=== PATIENT | male | born 1960 | race Caucasian/White ===

== ENCOUNTER 2021-01-13 08:28 | Observation (INO) | payer SELFPAY, OTHER ==
[2021-01-13] VITALS (10 sets, daily range): BP systolic 116–160; BP diastolic 68–92; PULSE 66–93; RESP 15–18; TEMP 36–36.7; O2SAT 95–98; BMI 28.0; BMI 27.6
--- NOTE | 2021-01-13 08:49 | EKG12_ITS ---
Test Reason : ADMISSION Blood Pressure : / mmHG Vent. Rate : 062 BPM Atrial Rate : 062 BPM P-R Int : 196 ms QRS Dur : 104 ms QT Int : 408 ms P-R-T Axes : 038 019 054 degrees QTc Int : 414 ms Normal sinus rhythm Normal ECG When compared with ECG of 30-MAR-2016 12:50, No significant change was found Confirmed by SANTANA VAZQUEZ, EUGENE ([id number]), clinical editor ABY MATOS ([id number]) on 01/14/2021 10:56:48 AM Referred By: RIVER Confirmed By:EUGENE DILLON MD
--- NOTE | 2021-01-13 08:54 | ED.DCSUM_ITS ---
- ER Visit Summary Date of Service: 01/13/21 Chief Complaint: Chest pain History of Present Illness: The patient is a 60 M presenting with chest pain. Patient states he has intermittent left-sided chest pain. He states this is worsened with exertion. He has associated shortness of breath and dizziness. The pain radiates to his left arm. He has no family history of early heart disease. He is not a smoker. Denies exposure to Covid. Physical Examination: Vitals are stable. Patient is afebrile. Alert no acute distress. HEENT exam is unremarkable. Neck is supple. Lungs are clear and equal bilaterally. Heart is regular rate and rhythm. Abdomen is soft nontender nondistended. Extremities are unremarkable. Skin is warm and dry. No focal neurologic deficit. Remainder of exam is unremarkable. Emergency Department Course and Treatment: EKG is sinus rhythm rate of 79 with no acute ischemic changes. Patient was given aspirin on arrival. CBC, chemistries unremarkable. Troponin is negative. Chest x-ray read by myself and radiology shows no acute process. Patient is pain-free on reevaluation. Will discuss with hospitalist for observation. Disposition: Observation Impression: Chest pain This note was generated with [employer] dictation software. It may contain incorrect words, spelling, and punctuation that were not noted in review of the chart prior to signing ED Disposition - Plan for ED Patient: Referrals: Care Physician,No Primary [Primary Care Provider] -
[2021-01-13] MEDS: Aspirin 81 MG TAB.CHEW 324 MG PO (08:55)
[2021-01-13 08:59] LABS: Absolute Lymphocyte Count 2.42 X10^3/uL (0.83-4.51); Absolute Neutrophil Count 4.4 X10^3/uL (2.0-7.7); Basophil# 0.12 X10^3/uL; Basophil% 1.5 % (0-1); Eosinophil# 0.43 X10^3/uL; Eosinophils% 5.2 % (0-5); Hematocrit 43.2 % (40-54); Hemoglobin 14.7 g/dL (13.0-16.5); Lymphocyte # 2.42 X10^3/ul (4.0); Lymphocyte % 29.4 % (19-41); Mean Corpuscular Hgb 30.5 pg (27.0-32.0); Mean Corpuscular Volume 89.6 fL (80-94); Mean Platelet Vol. 9.9 fl (6.2-12.0); Monocyte% 10.9 % (0-10); NRBC Flagged by Analyzer 0 % (0-5); Neutrophil # 4.35 X10^3/uL (2.7-7.7); Neutrophil % 52.8 % (47-70); Platelet Count 240 K/mm3 (150-450); RBC Distribution Width CV 12.3 % (11.6-14.6); RBC Distribution Width SD 40.5 fl (35.1-43.9); Red Blood Count 4.82 M/mm3 (4.6-6.2); White Blood Count 8.2 K/mm3 (4.4-11.0)
--- NOTE | 2021-01-13 09:00 | RAD_ITS ---
STUDY: X-RAY CHEST REASON FOR EXAM: Male, 60 years old. CHEST PAIN RADIATES INTO ARM TECHNIQUE: Single AP portable view of the chest. COMPARISON: Comparison is made with prior study dated 03/30/2016. FINDINGS: EKG electrodes are seen. The lungs are clear and expanded. Scattered calcified granulomas. There is no demonstrated pleural abnormality. Normal size heart. Normal mediastinum and oleksandr. Normal visualized pulmonary arteries. Normal visualized aortic arch and descending thoracic aorta. There are diffuse degenerative changes of the visualized thoracic spine. Normal visualized ribs, clavicles, and shoulders. There is no demonstrated abnormality of the visualized soft tissue structures of the upper abdomen. RAD/Chest 1 View (Portable) IMPRESSION: No acute abnormality is seen. Electronically Signed: Norberto Reardon MD at 9:15 EST , Service support ,
[2021-01-13 09:12] LABS: Anion Gap 6 (5-15); BUN 19 mg/dL (7-18); BUN/Creat Ratio 16.8 RATIO (10-20); Calcium,Total 9.4 mg/dL (8.5-10.1); Chloride 104 mmol/L (98-107); Creatinine, Serum 1.13 mg/dL (0.70-1.30); EST Glomerular Filtration Rate 70 mL/min (>60); Est Glom Filt Rate - Afr Amer 85 mL/min (>60); Estimated Creatinine Clearance 87.63 ml/min; Glucose 100 mg/dL (74-106); Potassium 3.8 mmol/L (3.5-5.1); Sodium Level 139 mmol/L (136-145)
--- NOTE | 2021-01-13 10:50 | PCM.HP.STD ---
Problem List (1) Chest pain Status: Acute History of Present Illness Date of Admission: 01/13/21 Chief Complaint: Chest pain. The patient is a 60 year old M with no significant past medical history presented to the emergency room because of chest pain. Symptoms started 3 days ago with left-sided chest pain, intermittent, mainly exertional, described as burning sensation, 5-6 out of 10 in severity, radiates to his left arm, associated with mild shortness of breath and occasional dizziness and without aggravating or relieving factors. He did mention that he has been having those burning sensation on the left chest over the last couple of weeks but this past Wednesday, it was more intense. Currently, he has no chest pain. In the emergency department, his blood pressure was slightly elevated, other vital signs were stable. Routine blood work was unremarkable. Chest x-ray showed no acute findings. EKG revealed normal sinus rhythm, normal VA interval, normal QRS, no acute hemic changes. Troponin was negative. He is being admitted for chest pain for evaluation. Past Medical History Allergies No Known Allergies Allergy (Verified 01/13/21 08:31) Home Medications: Ambulatory Orders Medication Instructions Recorded [place] Oil 01/13/21 Multivitamin with Minerals 1 ea PO DAILY 01/13/21 [Multiple Vitamin] Surgical History: appendectomy Psychiatric History: No pertinent psych hx Lives: Spouse/ Significant Other Smoking Status: Never smoker Alcohol: None Drugs: None - *Family History Maternal History Items: No pertinent history, - - No family history of CAD, hypertension or diabetes. Paternal History Items: No pertinent history Review of Systems Constitutional: Denies: Anorexia, Chills, Fever, Weakness Eyes: Denies: Blurred vision, Double vision, Drainage, Redness HEENT: Denies: Difficulty Hearing, Ear Pain, Eye Pain, Nasal Congestion, Sore Throat Cardiovascular: Reports: Chest Pain, Light Headedness, Palpitations. Denies: Edema, Heaviness, Syncope Respiratory: Reports: Shortness of Breath. Denies: Cough, Hemoptysis, Pleuritic Pain, Sputum production, Wheezing Gastrointestinal: Denies: Abdominal Pain, Constipation, Diarrhea, Nausea, Vomiting Genitourinary: Denies: Dysuria, Frequency, Hematuria Musculoskeletal: Denies: Arm Pain, Back Pain, Foot Pain Skin: Denies: Dryness, Rash Neurological: Denies: Balance problems, Double vision, Change in Speech, Slurred speech, Confusion, Headaches, Incoordination Psychiatric: Denies: Anxiety, Depression Endocrine: Denies: Change in Body Habitus, Polydipsia, Polyuria VTE Information - Inpt Only VTE Present on Admission: No VTE Mechan Device Prophylaxis: None VTE Pharm Prophylaxis ordered?: Yes - Physical Exam Vitals/I&O's: Vital Signs Temp Pulse Resp BP Pulse Ox 97.7 F L 66 16 126/78 H 97 01/13/21 10:45 01/13/21 10:45 01/13/21 10:45 01/13/21 10:45 01/13/21 10:45 Oxygen Delivery Method Room Air Weight: 238 lb 9.6 oz Body Mass Index (BMI) 27.6 General: Alert, Oriented x3, Cooperative, No apparent distress HEENT: Atraumatic, PERRLA, EOMI, Normocephalic Oral: Moist Mucosa, No Gingival or Mucosal Lesions/ Ulcerations Neck: Supple, No JVD, Negative Carotid Bruits, Trachea Midline, Thyroid Normal Size and Texture Lungs: Clear to auscultation, Normal air movement, No rhonchi, No wheeze, No rales Cardiovascular: Regular rate, Regular Rhythm, Normal S1, Normal S2, PMI Normal Abdomen: Bowel Sounds Present, Soft, Non Tender, Non-Distended, No Hepato-splenomegaly Extremities: No clubbing, No cyanosis, No edema Skin: No rashes, No breakdown Lymphatic: No Cervical, Supraclavicular, or Inguinal Adenopathy Neurological: Cranial nerves II-XII grossly intact, Motor Exam 5/5 strength throughout Psych/Mental Status: Normal Affect, Appropriate, Alert and oriented to time, place, person, mood and affect Laboratory Results 01/13/21 08:40: WBC 8.2, RBC 4.82, Hgb 14.7, Hct 43.2, MCV 89.6, MCH 30.5, MCHC 34.0, RDW Std Deviation 40.5, RDW Coeff of Vu 12.3, Plt Count 240, MPV 9.9, Immature Gran % (Auto) 0.200, Neut % (Auto) 52.8, Lymph % (Auto) 29.4, [place] % (Auto) 10.9 H, Eos % (Auto) 5.2 H, Baso % (Auto) 1.5 H, Absolute Neuts (auto) 4.4, Absolute Lymphs (auto) 2.42, Nucleated RBC % 0 01/13/21 08:40: Sodium 139, Potassium 3.8, Chloride 104, Carbon Dioxide 29.0, Anion Gap 6, BUN 19 H, Creatinine 1.13, Estim Creat Clear Calc 87.63, Est GFR (MDRD) Af Amer 85, Est GFR (MDRD) Non-Af 70, BUN/Creatinine Ratio 16.8, Glucose 100, Calcium 9.4, Troponin I < 0.015 Clinical Impression(s) from Imaging Studies Chest X-Ray 01/13/21 09:00 IMPRESSION: No acute abnormality is seen. Electronically Signed: Norberto Reardon MD at 9:15 EST , Service support , Assessment/Plan All Active Problems Chest pain (Acute) This is a 60 years old male patient presented to the emergency room because of chest pain and he is being admitted for evaluation. #1 chest pain: Risk factors are only age. Patient does not smoke. No family history of premature CAD. No personal history or family history of diabetes or hypertension. EKG revealed no acute hemic changes. Troponin was negative. Chest x-ray showed no acute findings. His pain could be due to CAD, cardiac arrhythmia. Plan: Admit to PCU for observation, cardiac monitoring, serial cardiac enzymes, repeat EKG tomorrow morning, start baby aspirin, sublingual nitroglycerin as needed, Tylenol as needed, nuclear stress test tomorrow morning if cardiac enzymes are negative, lipid profile, check TSH. #2 DVT prophylaxis: Subcu Lovenox. This note was generated with [employer] software. It may contain incorrect words, spelling, and punctuation that were not noted in checking the note before signing. OBSV E&M: 96587 Initial observation care L3
--- NOTE | 2021-01-13 11:26 | EKG12_ITS ---
Test Reason : AM EKG Blood Pressure : / mmHG Vent. Rate : 075 BPM Atrial Rate : 075 BPM P-R Int : 186 ms QRS Dur : 100 ms QT Int : 390 ms P-R-T Axes : 051 023 040 degrees QTc Int : 435 ms Normal sinus rhythm Normal ECG When compared with ECG of 13-JAN-2021 10:54, MANUAL COMPARISON REQUIRED, DATA IS UNCONFIRMED Confirmed by SANTANA VAZQUEZ, EUGENE ([id number]), acquisition editor JUANCARLOS PEACOCK ([id number]) on 01/15/2021 1:31:32 PM Referred By: KALI Confirmed By:EUGENE DILLON MD
[2021-01-13 11:36] LABS: Thyroid Stim Hormone (TSH) 8.89 uIU/mL (0.358-3.74)
[2021-01-13] MEDS: Enoxaparin 40 MG/0.4 ML Syringe SC (12:27)
[2021-01-13] MEDS: Zolpidem Tartrate 5 MG Tablet PO (21:54)
--- NOTE | 2021-01-13 23:38 | PCS.PANDOC ---
PANDEMIC DOCUMENTATION INITIATED: Date: 01/13/21 Time: 10:30
[2021-01-14] MEDS: Acetaminophen 325 MG Tablet 650 MG PO (00:05)
[2021-01-14 03:00] VITALS: PULSE 77
[2021-01-14 03:45] VITALS: BP 113/69; PULSE 72; RESP 16; TEMP 36.6; O2SAT 96
--- NOTE | 2021-01-14 05:55 | EKG12_ITS ---
Test Reason : CP Blood Pressure : / mmHG Vent. Rate : 079 BPM Atrial Rate : 079 BPM P-R Int : 184 ms QRS Dur : 102 ms QT Int : 380 ms P-R-T Axes : 047 020 051 degrees QTc Int : 435 ms Normal sinus rhythm Normal ECG Confirmed by BOSSMAN VAZQUEZ, JOHN ([id number]), editor managing newspaper MILLER CURIEL ([id number]) on 01/17/2021 11:41:16 AM Referred By: SANJUANA Confirmed By:JOHN KEITA MD
[2021-01-14] MEDS: Aspirin E.C. 81 MG Tablet PO (06:30)
[2021-01-14 06:31] VITALS: BP 100/68; PULSE 82; RESP 16; TEMP 36.5; O2SAT 95
[2021-01-14 07:00] VITALS: PULSE 88
[2021-01-14 07:36] LABS: Cholesterol 198 mg/dL (200); High Density Lipoprotein 37 mg/dL; Triglycerides 125 mg/dL; Very Low Density Lipoprotein 25 mg/dL (5-40)
[2021-01-14 07:56] LABS: Free T3 2.6 pg/mL (2.18-3.98); T4 Free Direct 1.08 ng/dL (0.76-1.46); T4 Total, Thyroxin 9.4 ug/dL (4.5-12.1)
[2021-01-14 08:11] VITALS: BP 104/70; PULSE 79; RESP 18; TEMP 36.9; O2SAT 98
--- NOTE | 2021-01-14 12:38 | STRESSREP ---
Stress Test Report Date: 01-14-2021 Procedure: Exercise tolerance test/imaging study Indications: Chest pain: Shortness of breath/dyspnea Consent: Per the patient Procedure: The patient exercised on a Nader protocol for 7 minutes and 30 seconds completing Stage II and 1 minute and 30 seconds of Stage III achieving a peak heart rate of 169 bpm (106% predicted maximal heart rate) with a peak blood pressure 140/72 mmHg and a peak MET capacity of 9 METs. The baseline ECG demonstrated normal sinus rhythm. The peak exercise ECG demonstrated no obvious ECG changes. There were no cardiac dysrhythmias pretest, during exercise, or recovery. The functional capacity was considered good. There was chest discomfort/burning at peak exercise with subsequent spontaneous resolution in recovery. The examination was discontinued secondary to discomfort/dyspnea. Impression: 1. Technically adequate (percent predicted maximal heart rate greater than 85%) exercise tolerance test 2. Peak exercise ECG with no obvious ECG changes 3. There were no cardiac dysrhythmias pretest, during exercise, or recovery 4. Nuclear images pending Myocardial perfusion imaging study: Technique: The patient was injected with 14.6 mCi of technetium 99m Cardiolite and subsequently rest SPECT Cardiolite nuclear imaging was obtained in the horizontal long, vertical long, and short axis views. The patient exercised on a Nader protocol for 7 minutes and 30 seconds completing Stage II and 1 minute and 30 seconds of Stage III achieving a peak heart rate of 169 bpm (106% predicted maximal heart rate) with a peak blood pressure 140/72 mmHg and a peak MET capacity of 9 METs. The patient was injected with 44.4 mCi of technetium 99m Cardiolite and subsequently stress SPECT Cardiolite nuclear imaging was obtained in the horizontal long, vertical long, and short axis views. A gated Cardiolite study at peak stress was obtained. Interpretation: Rest and stress SPECT Cardiolite nuclear imaging status post realignment, normalization, and attenuation correction, demonstrates the appearance of extracardiac/gastrointestinal tracer uptake near the inferior segments and otherwise appear to demonstrate relative uniform tracer uptake and myocardial perfusion appearing within normal limits. There is end systolic thickening and brightening. The gated Cardiolite study demonstrates myocardial thickening and inward wall motion. The reported LVEF is 41%. Impression: 1. Rest and stress SPECT Cardiolite nuclear imaging demonstrate myocardial perfusion changes appearing compatible with the effects of extracardiac/gastrointestinal tracer uptake near the inferior segments and otherwise appear to demonstrate relative uniform tracer uptake and myocardial perfusion appearing within normal limits. 2. The gated Cardiolite study reports an LVEF of 41%. This note was generated with [employer] software. It may contain incorrect words, spelling, and punctuation that were not noted in checking the note before signing.
--- NOTE | 2021-01-14 12:42 | DCINST_ITS ---
- Discharge Diagnoses Current Active Problems: Current Active and Chronic Problems Chest pain (Acute) You will use the following diet at home:: Regular Your food should be the consistency of: Regular Discharge Activity: Return to Normal Activity Weight Bearing Status: Full weight bearing Call your doctor if you observe: Fever of 101 or Higher, Shortness of breath, Dizziness, Fainting spells, Chest pain, Increased palpitations (irregular heartbeat), Uncontrolled pain Allergies/Adverse Reactions: Allergies No Known Allergies Allergy (Verified 01/13/21 08:31) Medications to take at Discharge [place] Oil 01/13/21 Multivitamin with Minerals [Multiple Vitamin] 1 ea PO DAILY 01/13/21 Primary Care Physician: Care Physician,No Primary [Primary Care Provider] - Please follow up with your Primary Care Physician in: 1-2 weeks. Test Results: Test results from this visit will be discussed in further detail at your follow- up appointment, if applicable.
--- NOTE | 2021-01-14 12:43 | DS.PCM_ITS ---
Discharge Date and Diagnosis - Problem List Patient Problems: Active and Suspected Problems Abnormal echocardiogram (Acute) HLD (hyperlipidemia) (Acute) Chest pain (Acute) Date of Admission: 01/13/21 Date of Discharge: 01/14/21 - Primary Discharge Diagnosis Acute Problems: Active Problems #1 chest pain, ACS ruled out. #2 abnormal echocardiogram, borderline ejection fraction and mild global RV systolic dysfunction. Hospital Course and Treatment Imaging Results: 01/14/21 05:55 Nuclear Stress Test - Treadmil [NM] Routine Impression: 1. Rest and stress SPECT Cardiolite nuclear imaging demonstrate myocardial perfusion changes appearing compatible with the effects of extracardiac/gastrointestinal tracer uptake near the inferior segments and otherwise appear to demonstrate relative uniform tracer uptake and myocardial perfusion appearing within normal limits. 2. The gated Cardiolite study reports an LVEF of 41%. Clinical Impression(s) from Imaging Studies Chest X-Ray 01/13/21 09:00 IMPRESSION: No acute abnormality is seen. Electronically Signed: Norberto Reardon MD at 9:15 EST , Service support , Dr. Caruso, cardiology. Operations: None Procedures: 2-D Echocardiogram, EKG, Stress test Summary of Care Provided: Patient seen and examined on the day of discharge and appeared to be stable to be discharged home. He denied chest pain, no shortness of breath. His vital si gns remained stable. The patient is a 60 year old M admitted for chest pain for evaluation. His initial and repeat EKGs revealed no evidence of acute acute changes. Troponin was negative x3. Routine blood work was unremarkable. Lipid profile revealed cholesterol of 198, LDL cholesterol of 136 and HDL cholesterol of 37. TSH was elevated at 8.89. Patient denied any symptoms of hypothyroidism. He has no thyroid swelling or lump. Free T4, total T4 and free T3 were normal. Patient underwent nuclear stress test that revealed no evidence of stress-induced myocardial ischemia but ejection fraction was 41%. 2D echocardiogram done and revealed ejection fraction of 45%, mild global LV systolic dysfunction, mild global RV systolic dysfunction as well. There was no evidence of acute CHF. Patient was started on aspirin, Coreg and statins. Cardiology consulted and recommended that patient should go for cardiac catheterization which can be done as outpatient. After discussion with the patient, we decided to go with medical treatment for now and patient will come back in couple of weeks for cardiac catheterization. Patient discharged home in a stable condition, discharged on aspirin, Lipitor and Coreg twice daily, plan to follow-up with cardiology in 2 to 3 weeks for cardiac catheterization as outpatient, recommended follow-up with PCP in 1 to 2 weeks. Patient Problems: Active and Suspected Problems Abnormal echocardiogram (Acute) HLD (hyperlipidemia) (Acute) Chest pain (Acute) - Physical Exam Vitals/I&O's: Vital Signs Temp Pulse Resp BP Pulse Ox 98.5 F 79 18 104/70 98 01/14/21 08:11 01/14/21 08:11 01/14/21 08:11 01/14/21 08:11 01/14/21 08:11 Oxygen Delivery Method Room Air Weight: 238 lb 9.6 oz Body Mass Index (BMI) 27.6 Intake and Output for Last 24 Hours 01/12/21 01/13/21 01/14/21 23:59 23:59 23:59 Intake Total 1030 / 1030 300 / 300 Balance 1030 / 1030 300 / 300 General: Alert, Oriented x3, Cooperative, No apparent distress HEENT: Atraumatic, PERRLA, EOMI, Normocephalic Oral: Moist Mucosa, No Gingival or Mucosal Lesions/ Ulcerations Neck: Supple, No JVD, Negative Carotid Bruits, Trachea Midline, Thyroid Normal Size and Texture Lungs: Clear to auscultation, Normal air movement, No rhonchi, No wheeze, No rales Cardiovascular: Regular rate, Regular Rhythm, Normal S1, Normal S2, PMI Normal Abdomen: Bowel Sounds Present, Soft, Non Tender, Non-Distended, No Hepato- splenomegaly Extremities: No clubbing, No cyanosis, No edema Skin: No rashes, No breakdown Lymphatic: No Cervical, Supraclavicular, or Inguinal Adenopathy Neurological: Cranial nerves II-XII grossly intact, Neuro grossly intact Psych/Mental Status: Normal Affect, Appropriate Laboratory Results 01/13/21 12:14: Troponin I < 0.015 01/13/21 14:25: Troponin I < 0.015 01/14/21 06:30: Triglycerides 125, Cholesterol 198, LDL Cholesterol 136 H, VLDL Cholesterol 25, HDL Cholesterol 37 L 01/14/21 06:30: Free T4 1.08, Thyroxine (T4) 9.4, Free T3 pg/dL 2.6 Current Medications Acetaminophen (Acetaminophen 325 Mg Tablet) 650 mg PO Q6H PRN PRN PRN Reason: Pain Score 1-10/Temp > 100.7 F Last Admin: 01/14/21 00:05 Dose: 650 mg Documented by: Aspirin (Aspirin E.C. 81 Mg Tablet) 81 mg PO DAILY@0800 [facility] Last Admin: 01/14/21 06:30 Dose: 81 mg Documented by: Enoxaparin Sodium (Enoxaparin 40 Mg/0.4 Ml Syringe) 40 mg SC DAILY [facility] Last Admin: 01/14/21 10:55 Dose: Not Given Documented by: Sodium Chloride () 250 mls @ 15 mls/hr IV .[id number] PRN PRN Reason: Saline Flush Sodium Chloride () 250 mls @ 15 mls/hr IV .[id number] PRN PRN Reason: Additional IVPB Infusion Nitroglycerin (Nitroglycerin (Inpatient Use) 0.4 Mg Tab.Subl) 0.4 mg SUBLINGUAL Q5M PRN PRN Reason: CARDIAC/CHEST PAIN Ondansetron HCl (Ondansetron 4 Mg/2 Ml Vial) 4 mg IV Q8H PRN PRN PRN Reason: NAUSEA/VOMITING Sodium Chloride (0.9% Saline Lock 10 Ml Syringe) 10 - 40 ml IV UD PRN PRN Reason: SALINE FLUSH Zolpidem Tartrate (Zolpidem Tartrate 5 Mg Tablet) 5 mg PO QHS PRN PRN PRN Reason: INSOMNIA Last Admin: 01/13/21 21:54 Dose: 5 mg Documented by: Discharge Activity: Return to Normal Activity Weight Bearing Status: Full weight bearing Call your doctor if you observe: Fever of 101 or Higher, Shortness of breath, Dizziness, Fainting spells, Chest pain, Increased palpitations (irregular heartbeat), Uncontrolled pain Home Medications: Medications to take at Discharge Multivitamin with Minerals [Multiple Vitamin] 1 ea PO DAILY 01/13/21 Aspirin E.C. [Ecotrin] 81 mg PO DAILY@0800 #90 tab 01/14/21 Atorvastatin Calcium [Lipitor] 20 mg PO QHS #90 tab 01/14/21 Carvedilol [Coreg (Beta Khushi)] 3.125 mg PO BID #90 tab 01/14/21 Krill/Om-3/Dha/Epa/Phospho/Ast [Krill Oil 1,000 mg Softgel] 2,000 mg PO DAILY 01/14/21 Following Prescriptions Were Given to Patient: Carvedilol [Coreg (Beta Khushi)] 3.125 mg PO BID #90 tab Transmission Status: Received by [facility] Aspirin E.C. [Ecotrin] 81 mg PO DAILY@0800 #90 tab Transmission Status: Received by [facility] Atorvastatin Calcium [Lipitor] 20 mg PO QHS #90 tab Transmission Status: Received by [facility] Primary Care Physician: Care Physician,No Primary [Primary Care Provider] - Please follow up with your Primary Care Physician in: 1-2 weeks. Disposition: Home Minutes spent on discharge:: 28 Patient Condition:: Stable Medical Necessity - Tobacco Use Smoking Status: Never smoker Meaningful Use Info Meaningful Use Diagnoses (Choose all that apply): None applicable OBSV E&M: 64600 Observation care discharge
--- NOTE | 2021-01-14 12:56 | ECHOD_ITS ---
Reason For Study: CHEST PAIN Procedure This was a 2D Doppler, Color Flow transthoracic echocardiogram. Exam performed portable in patient room. Left Ventricle Normal LV size. Apical false tendon noted. Mild global left ventricular systolic dysfunction. The estimated ejection fraction is 45 %. Transmitral doppler flow suggestive of impaired relaxation of left ventricle. Right Ventricle Mildly dilated right ventricle. Mild global right ventricular systolic dysfunction. Atria Normal left atrium. The right atrium is mildly enlarged. No doppler evidence for ASD. Mitral Valve There is no mitral annular calcification. Normal mitral valve. Trivial mitral valve insufficiency. Tricuspid Valve Normal tricuspid valve. Trivial tricuspid valve insufficiency. Right ventricular systolic pressure estimated to be 20 mmHg. Aortic Valve Trisinus/trileaflet aortic valve. Normal aortic valve. Pulmonic Valve The pulmonic valve is not well visualized. Trivial pulmonic valve insufficiency. Great Vessels Normal sized aortic root. Pericardium/Pleural No pericardial effusion. MMode/2D Measurements & Calculations LVIDd: 5.0 cm IVSd: 0.88 cm Ao root diam: 3.3 cm LVIDs: 3.9 cm LVPWd: 0.89 cm FS: 21.5 % LAV(MOD-bp): 58.1 ml LVAd ap4: 38.2 cm2 SV(MOD-sp4): 67.0 ml LAV(MOD-bp) Indexed: 23.9 ml/m2 EDV(MOD-sp4): 146.3 ml LAV(MOD-sp2): 58.4 ml EDV(sp4-el): 149.3 ml LAV(MOD-sp4): 58.7 ml LVAs ap4: 26.3 cm2 ESV(MOD-sp4): 79.3 ml ESV(sp4-el): 76.9 ml EF(MOD-sp4): 45.8 % EF(sp4-el): 48.5 % SV(sp4-el): 72.4 ml LA A4 area: 18.7 cm2 LA dimension(2D): 4.4 cm RA A4 area: 21.0 cm2 Time Measurements MV dec time: 0.22 sec Doppler Measurements & Calculations MV E max zana: 38.3 cm/sec Lat Peak E' Zana: 8.9 cm/sec Med Peak E' Zana: 6.6 cm/sec MV A max zana: 43.7 cm/sec E/E' lat: 4.3 E/E' med: 5.8 MV E/A: 0.88 Ao V2 max: 85.9 cm/sec LV V1 max: 66.6 cm/sec PA V2 max: 125.8 cm/sec Ao max P.0 mmHg LV V1 max P.8 mmHg TR max zana: 208.4 cm/sec TR max P.4 mmHg Interpretation Summary Mild global left ventricular systolic dysfunction. The estimated ejection fraction is 45 %. Apical false tendon noted. Mildly dilated right ventricle. Mild global right ventricular systolic dysfunction. The right atrium is mildly enlarged. Trivial mitral valve insufficiency. Trivial tricuspid valve insufficiency. Trivial pulmonic valve insufficiency. Right ventricular systolic pressure estimated to be 20 mmHg. Transmitral doppler flow suggestive of impaired relaxation of left ventricle Ordering Physician: Steve Higgins Referring Physician: LATASHA PCP Performed By: Shannon Sebastian, GREG, RVT
--- NOTE | 2021-01-14 14:04 | PHA.DC.MR ---
Pharmacy Service has performed discharge medication reconciliation for this patient. The patient's discharge medication list was reviewed for discrepancies and discrepancies were resolved. Home Medications Multivitamin with Minerals [Multiple Vitamin] 1 ea PO DAILY 01/13/21 Krill/Om-3/Dha/Epa/Phospho/Ast [Krill Oil 1,000 mg Softgel] 2,000 mg PO DAILY 01/14/21
[2021-01-14 14:10] VITALS: BP 129/75; PULSE 91; RESP 18; TEMP 36.6; O2SAT 99
--- NOTE | 2021-01-14 17:11 | DCINST_ITS ---
- Discharge Diagnoses Current Active Problems: Current Active and Chronic Problems Chest pain (Acute) You will use the following diet at home:: Cardiac Your food should be the consistency of: Regular Discharge Activity: Return to Normal Activity Weight Bearing Status: Full weight bearing Call your doctor if you observe: Fever of 101 or Higher, Shortness of breath, Dizziness, Fainting spells, Chest pain, Increased palpitations (irregular heartbeat), Uncontrolled pain Allergies/Adverse Reactions: Allergies No Known Allergies Allergy (Verified 01/13/21 08:31) Medications to take at Discharge Multivitamin with Minerals [Multiple Vitamin] 1 ea PO DAILY 01/13/21 Aspirin E.C. [Ecotrin] 81 mg PO DAILY@0800 #90 tab 01/14/21 Atorvastatin Calcium [Lipitor] 20 mg PO QHS #90 tab 01/14/21 Carvedilol [Coreg (Beta Khushi)] 3.125 mg PO BID #90 tab 01/14/21 Krill/Om-3/Dha/Epa/Phospho/Ast [Krill Oil 1,000 mg Softgel] 2,000 mg PO DAILY 01/14/21 The following prescriptions were given: Carvedilol [Coreg (Beta Khushi)] 3.125 mg PO BID #90 tab Transmission Status: Pending to [facility] #[facility] Aspirin E.C. [Ecotrin] 81 mg PO DAILY@0800 #90 tab Transmission Status: Pending to [facility] Atorvastatin Calcium [Lipitor] 20 mg PO QHS #90 tab Transmission Status: Pending to [facility] Primary Care Physician: Care Physician,No Primary [Primary Care Provider] - Please follow up with your Primary Care Physician in: 1-2 weeks. Test Results: Test results from this visit will be discussed in further detail at your follow- up appointment, if applicable. Please Follow Up With: Justin Caruso MD When: 2-3 weeks.
--- NOTE | 2021-01-14 17:53 | PCM.CONS.C ---
Problem List (1) Chest pain Status: Acute (2) Abnormal echocardiogram Status: Acute (3) HLD (hyperlipidemia) Status: Acute Reason for Consult Date of Consultation: 01/14/21 History of Present Illness: The patient is a 60 year old white male with no past cardiovascular history who is referred for evaluation of chest discomfort as well as abnormal noninvasive studies suggesting mildly diminished LV systolic function and an elevated LDL level. The patient states that he presented to [facility] long ago with a question of whether or not he had any cardiovascular disease process and was referred to [facility] cardiology at the time but unfortunately due to insurance issues was unable to establish care. He states he never pursued any further cardiac evaluation. More recently he has noted recurrence of his previous symptoms which included a left-sided chest burning/heaviness sensation involving the left upper extremity but not necessarily associated with nausea, emesis, dyspnea, or diaphoresis. He states these symptoms can occur with activity but he also notes he can have a mixture of the symptoms when he is bending over and standing up as well as sometimes when he is lying down in bed. He states when he is lying down in bed he has difficult time getting a comfortable position and will be up on and off throughout the night. However, at the same time, he states weather permitting he has been out riding his bicycle up to 25 miles a day and can also play basketball and does not necessarily notice any of the same symptoms. Based upon his concerns he elected to present to the hospital for further evaluation. He denied any orthopnea or PND or peripheral pitting edema. He states he has never had syncope other than when he had significant epistaxis the past. Since being in the hospital he underwent evaluation with cardiac enzymes which were negative. His ECG/repeat ECG demonstrated sinus rhythm with no acute changes. He subsequently underwent evaluation with an exercise tolerance test/imaging study. At peak exercise he complained of his chest burning discomfort with spontaneous resolution and recovery. He did not appear to have any obvious electrocardiographic changes or myocardial perfusion changes. His LV systolic function appeared to be mildly diminished. He subsequently underwent a transthoracic echocardiogram which suggested mildly diminished LV systolic function as well as mildly dilated and dysfunctional right ventricle. He was subsequently referred for cardiovascular consultation. [] Past Medical History Allergies/Adverse Reactions: Allergies No Known Allergies Allergy (Verified 01/13/21 08:31) Home Medications: Ambulatory Orders Medication Instructions Recorded Multivitamin with Minerals 1 ea PO DAILY 01/13/21 [Multiple Vitamin] Aspirin E.C. [Ecotrin] 81 mg PO DAILY@0800 #90 tab 01/14/21 Atorvastatin Calcium [Lipitor] 20 mg PO QHS #90 tab 01/14/21 Carvedilol [Coreg (Beta Khushi)] 3.125 mg PO BID #90 tab 01/14/21 Krill/Om-3/Dha/Epa/Phospho/Ast 2,000 mg PO DAILY 01/14/21 [Krill Oil 1,000 mg Softgel] Surgical History: appendectomy Psychiatric History: No pertinent psych hx - *Family History Maternal History Items: No pertinent history, - - No family history of CAD, hypertension or diabetes. Paternal History Items: No pertinent history Lives: Spouse/ Significant Other Smoking Status: Never smoker Alcohol: None Drugs: None Review of Systems - Review of Systems General: Denies: Fever, Night Sweats, Fatigue Cardiovascular: Reports: Chest Discomfort, Chest Discomfort at Rest, Chest Discomfort with Exertion. Denies: Shortness of Breath, Orthopnea, PND, Peripheral Edema, Palpitations, Lightheadedness, Dizziness, Near Syncope, Syncope Respiratory: Denies: Cough, Sputum Production, Hemoptysis Gastrointestinal: Denies: Hematemesis, Hematochezia, Melena Genitourinary: Denies: Dysuria, Hematuria Skin: Denies: Rash Subjectve: This is a 60-year-old white male appears to be resting comfortably at the moment in no acute distress. Objective: Vital Signs Temp Pulse Resp BP Pulse Ox 97.9 F 91 18 129/75 H 99 01/14/21 14:10 01/14/21 14:10 01/14/21 14:10 01/14/21 14:10 01/14/21 14:10 Oxygen Delivery Method Room Air Weight: 238 lb 9.6 oz Body Mass Index (BMI) 27.6 Intake and Output for Last 24 Hours 01/12/21 01/13/21 01/14/21 23:59 23:59 23:59 Intake Total 1030 / 1030 300 / 300 Balance 1030 / 1030 300 / 300 General: Awake, Alert, Oriented x 3, Cooperative, No Acute Distress HEENT: Atraumatic, Normocephalic, PERRL, EOMI, Sclera Non Icteric Neck: Supple, Good ROM, No JVD Lungs: Clear to auscultation Cardiovascular: Regular Rhythm, Normal S1, Normal S2 Abdomen: Bowel Sounds Present, Soft Extremities: No Cyanosis, No Clubbing, No edema Psych/Mental Status: Appropriate 01/14/21 06:30: Triglycerides 125, Cholesterol 198, LDL Cholesterol 136 H, VLDL Cholesterol 25, HDL Cholesterol 37 L Rhythm: Sinus rhythm EKG: Sinus rhythm ECHO: Interpretation Summary Mild global left ventricular systolic dysfunction. The estimated ejection fraction is 45 %. Apical false tendon noted. Mildly dilated right ventricle. Mild global right ventricular systolic dysfunction. The right atrium is mildly enlarged. Trivial mitral valve insufficiency. Trivial tricuspid valve insufficiency. Trivial pulmonic valve insufficiency. Right ventricular systolic pressure estimated to be 20 mmHg. Transmitral doppler flow suggestive of impaired relaxation of left ventricle Stress Test: Stress Test Report Date: 01-14-2021 Procedure: Exercise tolerance test/imaging study Indications: Chest pain: Shortness of breath/dyspnea Consent: Per the patient Procedure: The patient exercised on a Nader protocol for 7 minutes and 30 seconds completing Stage II and 1 minute and 30 seconds of Stage III achieving a peak heart rate of 169 bpm (106% predicted maximal heart rate) with a peak blood pressure 140/72 mmHg and a peak MET capacity of 9 METs. The baseline ECG demonstrated normal sinus rhythm. The peak exercise ECG demonstrated no obvious ECG changes. There were no cardiac dysrhythmias pretest, during exercise, or recovery. The functional capacity was considered good. There was chest discomfort/burning at peak exercise with subsequent spontaneous resolution in recovery. The examination was discontinued secondary to discomfort/dyspnea. Impression: 1. Technically adequate (percent predicted maximal heart rate greater than 85%) exercise tolerance test 2. Peak exercise ECG with no obvious ECG changes 3. There were no cardiac dysrhythmias pretest, during exercise, or recovery 4. Nuclear images pending Myocardial perfusion imaging study: Technique: The patient was injected with 14.6 mCi of technetium 99m Cardiolite and subsequently rest SPECT Cardiolite nuclear imaging was obtained in the horizontal long, vertical long, and short axis views. The patient exercised on a Nader protocol for 7 minutes and 30 seconds completing Stage II and 1 minute and 30 seconds of Stage III achieving a peak heart rate of 169 bpm (106% predicted maximal heart rate) with a peak blood pressure 140/72 mmHg and a peak MET capacity of 9 METs. The patient was injected with 44.4 mCi of technetium 99m Cardiolite and subsequently stress SPECT Cardiolite nuclear imaging was obtained in the horizontal long, vertical long, and short axis views. A gated Cardiolite study at peak stress was obtained. Interpretation: Rest and stress SPECT Cardiolite nuclear imaging status post realignment, normalization, and attenuation correction, demonstrates the appearance of extracardiac/gastrointestinal tracer uptake near the inferior segments and otherwise appear to demonstrate relative uniform tracer uptake and myocardial perfusion appearing within normal limits. There is end systolic thickening and brightening. The gated Cardiolite study demonstrates myocardial thickening and inward wall motion. The reported LVEF is 41%. Impression: 1. Rest and stress SPECT Cardiolite nuclear imaging demonstrate myocardial perfusion changes appearing compatible with the effects of extracardiac/gastrointestinal tracer uptake near the inferior segments and otherwise appear to demonstrate relative uniform tracer uptake and myocardial perfusion appearing within normal limits. 2. The gated Cardiolite study reports an LVEF of 41%. CXR: MPRESSION: No acute abnormality is seen. Electronically Signed: Norberto Reardon MD at 9:15 EST Assessment/Plan 1. Chest pain The patient has chest pain which has symptoms concerning for exertional angina pectoris as well as symptoms that appear to be somewhat atypical and not necessarily classic for angina pectoris. Thus far he has undergone evaluation with a rule out IL protocol which was negative by cardiac enzymes and ECG. His exercise tolerance test did not appear to demonstrate any objective evidence based upon his ECG or his myocardial perfusion study for stress-induced myocardial ischemia, however, he did have his symptoms at peak exercise. He was also noted based upon his myocardial perfusion study and his echocardiogram to have the appearance of mildly diminished LV systolic function. 2. Abnormal transthoracic echocardiogram Based upon his echocardiogram his LV systolic function was mildly diminished and he also appeared to have mild dilatation of his right ventricle with mild RV dysfunction. He does not describe any underlying pulmonary conditions. He has not been thought to have in the past to have any thromboembolic disease such as DVT/PE. 3. Hyperlipidemia/elevated LDLs The patient's LDLs are somewhat elevated. This may increase his cardiovascular risks. Overall from a cardiac standpoint the etiology of the patient's symptoms are concerning and yet unclear as well as his diminished LV systolic function and appearance of a mildly dilated RV with mild RV systolic dysfunction. The patient's case was discussed and reviewed with him. Status post a lengthy discussion it was thought reasonable to patient should be considered for further definitive evaluation with diagnostic cardiac catheterization to evaluate his coronary anatomy for any obvious angiographically significant CAD not being detected on his noninvasive studies that would bring out his symptoms as well as alter his LV systolic function. Depending upon the findings he may or may not need further cardiac versus noncardiac evaluation. In the meantime it would be reasonable to continue him on medical therapy such as aspirin, beta-blockers as tolerated, and lipid-lowering agents. Depending upon his tolerance to medication with respect to heart rate and blood pressure, etc., then his medication dose and/or the addition of other medications can be added as deemed appropriate. He does need to be monitored for any noncardiac etiologies that would explain his symptoms and findings as well. Status post discussion with the patient he was agreeable to proceeding with further cardiac evaluation as noted above. However he stated he wanted to be released home for continued outpatient follow-up/evaluation as opposed to remaining in the hospital. The patient's case was also discussed and reviewed with Dr. Higgins. This note was generated using a voice recognition system and there may be incorrect words, spelling or punctuation that were not noted when reviewing the office note prior to saving.
== END 2021-01-14 12:42 | disposition home or self-care (01) ==
LOC: ED 09:31 → PCU 09:57
PROVIDERS: Admitting Provider Hospitalist; Emergency Provider Emergency Medicine; Visit Provider Hospitalist
DX: R07.89 Other chest pain (principal); R06.02 Shortness of breath; R42 Dizziness and giddiness; I08.1 Rheumatic disorders of both mitral and tricuspid valves; E78.5 Hyperlipidemia, unspecified; R93.1 Abnormal findings on diagnostic imaging of heart and coronary circulation; Z79.82 Long term (current) use of aspirin; Z79.899 Other long term (current) drug therapy
CPT/HCPCS: 36415; 71045; 78452; 80048; 80061; 84436; 84439; 84443; 84481; 84484; 85025; 93005; 93017; 93306; 96372; 99218; 99285; A9500; A4216; G0378

== ENCOUNTER → 2024-06-14 | Outpatient (CLI) | payer MEDICARE, SELFPAY ==
--- NOTE | 2024-06-14 07:58 | ECHOD_ITS ---
Reason For Study: ABNORMAL FINDINGS OF HEART Procedure This was a 2D Doppler, Color Flow transthoracic echocardiogram. Exam performed in department. Left Ventricle Normal LV size. The estimated ejection fraction is 45 %. No evidence for diastolic dysfunction. There is mild global hypokinesis of the left ventricle. Right Ventricle Normal RV size. Normal systolic function. Atria The left and right atria are normal. No doppler evidence for ASD. Mitral Valve There is no mitral valve stenosis. Trivial mitral valve insufficiency. Tricuspid Valve There is no tricuspid stenosis. Unable to estimate RV systolic pressure due to inadequate jet, pulmonary artery pressure probably normal. Aortic Valve Trisinus/trileaflet aortic valve. There is no aortic stenosis. No aortic valve insufficiency. Pulmonic Valve There is no pulmonic valvular stenosis. No pulmonic valve insufficiency. Great Vessels Normal aortic root. Pericardium/Pleural No pericardial effusion. MMode/2D Measurements & Calculations LVIDd: 5.3 cm IVSd: 1.0 cm LVOT diam: 2.3 cm LVIDs: 3.6 cm LVPWd: 1.0 cm LVOT area: 4.1 cm2 RVDd: 4.4 cm FS: 31.8 % Ao root diam: 3.6 cm LAV(MOD-bp): 59.9 ml LVAd ap4: 32.7 cm2 LAV(MOD-bp) Indexed: 25.0 ml/m2 LVLd ap4: 8.3 cm LAV(MOD-sp2): 60.5 ml EDV(MOD-sp4): 106.5 ml LAV(MOD-sp4): 53.9 ml EDV(sp4-el): 109.7 ml LVAs ap4: 20.1 cm2 LVLs ap4: 6.7 cm ESV(MOD-sp4): 50.7 ml ESV(sp4-el): 51.4 ml EF(MOD-sp4): 52.4 % EF(sp4-el): 53.2 % LVAd ap2: 31.1 cm2 SV(MOD-sp4): 55.8 ml SV(MOD-sp2): 44.5 ml LVLd ap2: 8.6 cm EDV(MOD-sp2): 94.1 ml EDV(sp2-el): 95.1 ml LVAs ap2: 20.5 cm2 LVLs ap2: 7.4 cm ESV(MOD-sp2): 49.6 ml ESV(sp2-el): 48.2 ml EF(MOD-sp2): 47.3 % SV(sp4-el): 58.3 ml LA dimension(2D): 4.4 cm LA A4 area: 20.2 cm2 RA A4 area: 19.8 cm2 TAPSE: 1.9 cm Time Measurements MV dec time: 0.12 sec Doppler Measurements & Calculations MV E max zana: 57.4 cm/sec Lat Peak E' Zana: 12.4 cm/sec Med Peak E' Zana: 7.2 cm/sec MV A max zana: 65.1 cm/sec E/E' lat: 4.6 E/E' med: 8.0 MV E/A: 0.88 Ao V2 max: 99.3 cm/sec LV V1 max: 88.2 cm/sec MV dec slope: 477.5 cm/sec2 Ao max P.9 mmHg LV V1 max P.1 mmHg Ao V2 mean: 73.6 cm/sec LV V1 mean P.0 mmHg Ao mean P.4 mmHg LV V1 mean: 67.8 cm/sec Ao V2 VTI: 21.6 cm LV V1 VTI: 18.6 cm AV (velocity ratio): 0.86 NOHELIA(I,D): 3.5 cm2 NOHELIA(V,D): 3.7 cm2 SV(LVOT): 76.6 ml PA V2 max: 132.8 cm/sec TR max zana: 231.0 cm/sec PA max PG (full): 6.2 mmHg TR max P.4 mmHg ECHO/Echo Complete Interpretation Summary No evidence for diastolic dysfunction. The estimated ejection fraction is 45 %. There is mild global hypokinesis of the left ventricle. Trivial mitral valve insufficiency. Ordering Physician: Srinivasa Mixon Referring Physician: Srinivasa Mixon Performed By: Yessi Ochoa RDCS
== END | disposition home or self-care (01) ==
PROVIDERS: PCP Family Medicine; Referring Provider Family Medicine; Visit Provider Family Medicine
DX: R93.1 Abnormal findings on diagnostic imaging of heart and coronary circulation (principal); R06.02 Shortness of breath
CPT/HCPCS: 93306